=== PATIENT | male | born 1995 | race African-American/Black ===

== ENCOUNTER 2016-09-30 19:06 | Emergency (ER) | payer OTHER ==
[2016-09-30 19:25] VITALS: BP 104/83; PULSE 67; TEMP 97.3; BMI 18.8
[2016-09-30 20:43] LABS: URINE APPEARANCE CLEAR; URINE BILIRUBIN NEGATIVE (NEGATIVE); URINE BLOOD NEGATIVE (NEGATIVE); URINE COLOR YELLOW; URINE GLUCOSE (UA) NEGATIVE (NEGATIVE); URINE KETONE NEGATIVE (NEGATIVE); URINE LEUK ESTERASE NEGATIVE (NEGATIVE); URINE NITRITE NEGATIVE (NEGATIVE); URINE PROTEIN NEGATIVE (NEGATIVE); URINE UROBILINOGEN 2.0 E.U/dl E.U./dl (0.2-1.0)
--- NOTE | 2016-09-30 21:20 | PDOC ---
History of Present Illness - General Chief Complaint: Revisit, Lab Variance Stated Complaint: EVALUATION Time Seen by Provider: 09/30/16 19:41 History Source: Patient Exam Limitations: No Limitations - History of Present Illness Initial Comments: 09/30/16 21:16 CC itch rash to penis x 1 week Timing/Duration: 1 week Severity: moderate Associated Symptoms: denies: denies symptoms, cough, fever/chills, nausea/ vomiting Past History - Past Medical History Allergies/Adverse Reactions: Allergies Allergy/AdvReac Type Severity Reaction Status Date / Time shellfish derived Allergy Swelling Verified 09/30/16 19:23 Home Medications: Ambulatory Orders NK [No Known Home Medication] 07/12/16 Asthma: Yes - Psycho/Social/Smoking Cessation Hx Suicidal Ideation: No Smoking History: Never smoked Have you smoked in the past 12 months: No Number of Cigarettes Smoked Daily: 1 Information on smoking cessation initiated: No 'Breaking Loose' booklet given: 07/12/16 Hx Alcohol Use: No Drug/Substance Use Hx: No Substance Use Type: None Review of Systems - Review of Systems Constitutional: No: Symptoms Reported HEENTM: No: Symptoms Reported Respiratory: No: Symptoms reported, Cough ABD/GI: No: Symptoms Reported : Yes: Lesions. No: Dysuria, Discharge, Frequency, Urgency, Testicular Mass, Testicular Pain *Physical Exam - Vital Signs Last Vital Signs Temp Pulse Resp BP Pulse Ox 97.3 F L 67 14 104/83 100 09/30/16 19:23 09/30/16 19:23 09/30/16 19:23 09/30/16 19:23 09/30/16 19:23 - Physical Exam General Appearance: Yes: Appropriately Dressed HEENT: positive: TMs Normal, Pharynx Normal Neck: positive: Supple. negative: Tender, Rigid Respiratory/Chest: positive: Lungs Clear Male Genitalia: positive: other (penis under forskin angel some redness to glands with skin irritation; no HErpes lesions nor ulcerations). negative: discharge , testicular tenderness, testicular mass, epididymus tender Extremity: negative: Normal Capillary Refill ED Treatment Course - ADDITIONAL ORDERS Additional order review: Laboratory Results 09/30/16 20:30 Urine Color Yellow Urine Appearance Clear Urine pH 7.0 Ur Specific Eagle 1.019 Urine Protein Negative Urine Glucose (UA) Negative Urine Ketones Negative Urine Blood Negative Urine Nitrite Negative Urine Bilirubin Negative Urine Urobilinogen 2.0 e.u/dl Ur Leukocyte Esterase Negative Medical Decision Making - Medical Decision Making 09/30/16 21:19 with tx foir balanitis with steroid and anti fungal meds *DC/Admit/Observation/Transfer Diagnosis at time of Disposition: Balanitis - Discharge Dispostion Disposition: HOME Condition at time of disposition: Stable Admit: No - Patient Instructions Additional Instructions: we will call you with results of STFD testing
[2016-10-03 00:07] LABS: HSV 2 DNA. Negative (Negative)
== END 2016-09-30 21:23 | disposition home or self-care (01) ==
LOC: JERFT 19:06
DX: N48.1 Balanitis (principal)
CPT/HCPCS: 36415; 81003; 86790; 87086; 87491; 87529; 87591; 99281-25

== ENCOUNTER 2016-12-26 12:34 | Emergency (ER) | payer OTHER ==
[2016-12-26 12:42] VITALS: BP 116/77; PULSE 71; TEMP 98; BMI 20.3
[2016-12-26] MEDS ORDERED: IBUPROFEN 600 MG TABLET (FP) PO ONE (13:45)
[2016-12-26] MEDS ORDERED: IBUPROFEN 400 MG TABLET (FP) PO ONE (13:48)
--- NOTE | 2016-12-26 13:51 | PDOC ---
[id number] [id number] NEED PRESCRIPTION CHANGE Time Seen by Provider: 12/26/16 13:20 History Source: Patient Exam Limitations: No Limitations - History of Present Illness Initial Comments: 12/26/16 13:46 21 yr male with toothache after having wisdom tooth pulled 7 days ago states he took percocet but it makes him nauseas. Pt also requesting STD testing. Denies any exposure or history or exposure. Pt denies any symptoms of penile discharge or lesions. 12/26/16 17:03 Severity: mild Past History - Past Medical History Allergies/Adverse Reactions: Allergies Allergy/AdvReac Type Severity Reaction Status Date / Time shellfish derived Allergy Swelling Verified 12/26/16 12:42 Home Medications: Ambulatory Orders Clotrimazole 28 gm TP BID #1 cream..g. 09/30/16 Hydrocortisone 1% Ointment [Hytone 1% Ointment -] 1 applic TP BID #1 tube Asthma: Yes - Psycho/Social/Smoking Cessation Hx Anxiety: No Suicidal Ideation: No Smoking History: Never smoked Have you smoked in the past 12 months: No Number of Cigarettes Smoked Daily: 1 'Breaking Loose' booklet given: 07/12/16 Hx Alcohol Use: No Drug/Substance Use Hx: No Substance Use Type: None Review of Systems - Review of Systems Able to Perform ROS?: Yes Is the patient limited Cameroonian proficient: No Constitutional: Yes: Symptoms Reported, See HPI, Other (tender to left lower gum line s/p wisom tooth removed) HEENTM: No: Symptoms Reported Respiratory: No: Symptoms reported Cardiac (ROS): No: Symptoms Reported ABD/GI: No: Symptoms Reported *Physical Exam - Vital Signs Last Vital Signs Temp Pulse Resp BP Pulse Ox 98.0 F 71 20 116/77 97 12/26/16 12:39 12/26/16 12:39 12/26/16 12:39 12/26/16 12:39 12/26/16 12:39 - Physical Exam General Appearance: Yes: Nourished, Appropriately Dressed HEENT: positive: EOMI, BOBY, Normal ENT Inspection, TMs Normal, Pharynx Normal, Other (no evidence of dental abscess, TTP left lower wisdom tooth estraction , no evidence of infection , ) Neck: negative: Tender Respiratory/Chest: positive: Lungs Clear, Normal Breath Sounds Cardiovascular: positive: Regular Rhythm, Regular Rate Musculoskeletal: positive: Normal Inspection Extremity: positive: Normal Capillary Refill, Normal Inspection, Normal Range of Motion Integumentary: positive: Normal Color, Dry, Warm Neurologic: positive: copyright expert II-XII NML intact, Fully Oriented, Alert, Normal Mood/ Affect Medical Decision Making - Medical Decision Making 12/26/16 13:47 cc: toothache no fever wants to be tested for STD however pt DOES NOT want HIV testing today because he DOES NOT WANT TO WAIT for the result pt will go to the [facility] this week will swab for GC/Chlamydia and check for Syphylis 12/26/16 17:05 I have given motrin and I have given info for [facility] to have HIV testing. I have counseled pt on using condoms every time to prevent STDs *DC/Admit/Observation/Transfer Diagnosis at time of Disposition: Screening for STD (sexually transmitted disease), Toothache - Discharge Dispostion Disposition: HOME Condition at time of disposition: Good - Patient Instructions Additional Instructions: follow at the [facility] for HIV testing at [address] [place] [address] [phone] Walk in Tuesday between 11am and 6pm for testing or Tuesday 9am to 3pm take motrin (advil, motrin ibuprofen ) 800mg every 6hrs for pain follow with the dentist that pulled your teeth this week for follow up
== END 2016-12-26 13:57 | disposition home or self-care (01) ==
LOC: JERFT 12:34
DX: K08.89 Other specified disorders of teeth and supporting structures (principal); Z11.3 Encounter for screening for infections with a predominantly sexual mode of transmission
CPT/HCPCS: 36415; 86593; 87491; 87591; 99281-25

== ENCOUNTER 2018-01-24 18:34 | Emergency (ER) | payer OTHER ==
--- NOTE | 2018-01-24 18:39 | PDOC ---
Rapid Medical Evaluation Time Seen by Provider: 01/24/18 18:36 Medical Evaluation: Allergies Allergy/AdvReac Type Severity Reaction Status Date / Time shellfish derived Allergy Swelling Verified 12/26/16 12:42 01/24/18 18:36 Patient c/o: tingling to tip of penis, denies dysuria, hematuria or discharge, having unprotected sex with 1 female, wants STD and HIV testing Patient on brief exam: VSS Pateint ordered for: gc/chyl, hiv, RPR Patient to proceed to the ED Discharge Disposition - Diagnosis Concern about STD in male without diagnosis - Referrals - Patient Instructions - Post Discharge Activity
[2018-01-24 18:40] VITALS: BP 126/62; PULSE 85; TEMP 97.5; BMI 21.9
--- NOTE | 2018-01-24 19:37 | PDOC ---
History of Present Illness - General Chief Complaint: HIV Testing Stated Complaint: PERSONAL Time Seen by Provider: 01/24/18 18:36 History Source: Patient Exam Limitations: No Limitations - History of Present Illness Initial Comments: 01/24/18 19:35 Patient is a 22-year-old male who presents to the emergency department today for tingling to the tip of his penis. He states that he had unprotected sex recently with one female and now would like STD and HIV testing. Denies dysuria , hematuria and discharge. Past History - Travel Traveled outside of the country in the last 30 days: No Close contact w/someone who was outside of country & ill: No - Past Medical History Allergies/Adverse Reactions: Allergies Allergy/AdvReac Type Severity Reaction Status Date / Time shellfish derived Allergy Swelling Verified 12/26/16 12:42 Home Medications: Ambulatory Orders NK [No Known Home Medication] 01/24/18 Asthma: Yes COPD: No - Suicide/Smoking/Psychosocial Hx Smoking History: Never smoked Have you smoked in the past 12 months: No Number of Cigarettes Smoked Daily: 1 'Breaking Loose' booklet given: 07/12/16 Hx Alcohol Use: No Drug/Substance Use Hx: No Substance Use Type: None Review of Systems - Review of Systems Able to Perform ROS?: Yes Comments:: 01/24/18 19:36 CONSTITUTIONAL: Absent: fever, chills, diaphoresis, generalized weakness, malaise, loss of appetite Absent: cough, shortness of breath, dyspnea with exertion, orthopnea, wheezing, stridor, hemoptysis GASTROINTESTINAL: Absent: abdominal pain, abdominal distension, nausea, vomiting, diarrhea, constipation, melena, hematochezia GENITOURINARY: Present: tingling to the tip of his penis. Absent: dysuria, frequency, urgency, hesitancy, hematuria, flank pain, genital pain MUSCULOSKELETAL: Absent: myalgia, arthralgia, joint swelling SKIN: Absent: rash, itching, pallor NEUROLOGIC: Absent: headache, focal weakness or paresthesias, dizziness, unsteady gait, seizure, mental status changes, bladder or bowel incontinence Is the patient limited Faroese proficient: No *Physical Exam - Vital Signs Last Vital Signs Temp Pulse Resp BP Pulse Ox 97.5 F L 85 18 126/62 100 01/24/18 18:37 01/24/18 18:37 01/24/18 18:37 01/24/18 18:37 01/24/18 18:37 - Physical Exam Comments: 01/24/18 19:36 GENERAL: Well developed, well nourished. Awake and alert. No acute distress. NECK: Supple. Full ROM. No JVD. Carotid pulses 2+ and symmetric, without bruits. No thyromegaly. No lymphadenopathy. ABDOMINAL: Soft. Non-tender. Non-distended. No rebound or guarding. No organomegaly. Normoactive bowel sounds. : Uncircumsized penis, testicles descended b/l with no pain to palpation. Freely moving within the scrotum. No signs of lesions or penile discharge. MUSCULOSKELETAL Normal range of motion at all joints. No bony deformities or tenderness. No CVA tenderness. EXTREMITIES: No cyanosis. No clubbing. No edema. No calf tenderness. SKIN: Warm and dry. Normal capillary refill. No rashes. No jaundice. NEUROLOGICAL: Alert, awake, appropriate. Cranial nerves 2-12 intact. No deficits to light touch and temperature in face, upper extremities and lower extremities. No motor deficits in the in face, upper extremities and lower extremities. Normoreflexic in the upper and lower extremities. Normal speech. Toes are down- going bilaterally. Gait is normal without ataxia. PSYCHIATRIC: Cooperative. Good eye contact. Appropriate mood and affect. Medical Decision Making - Medical Decision Making 01/24/18 23:16 Patient is a 22-year-old male who presents to the emergency department for STD testing. He complains of tingling to his penis. No open wounds or herpes sores noted on exam. Urine is negative for infection. We'll empirically treat for GC chlamydia. HIV testing shows positive antibodies. Patient made aware of his test results. A phone call was placed to the [facility] to set up an appointment for the patient. Patient also given the phone number to the [facility]. Patient informed he needs to tell all of his sexual partners to get tested as well. Patient verbalizes understanding and states that he will follow-up with the [facility] tomorrow. Return precautions given. Patient understands all discharge instructions and all questions were answered. *DC/Admit/Observation/Transfer Diagnosis at time of Disposition: HIV antibody positive - Discharge Dispostion Disposition: HOME Condition at time of disposition: Stable - Referrals Referrals: [facility] Providers [Provider Group] - Patient Instructions Printed Discharge Instructions: DI for HIV Additional Instructions: 01/24/18 1. As discussed, a screening test for the HIV virus was performed today as per [facility] requirements. The preliminary results of your HIV test are Positive, which means you may have HIV. 2. The blood sample that was obtained will be sent out for further testing and confirmation. A confirmed Positive result is indicative of HIV infection, which is currently a lifelong condition. 3. As discussed, all test results are completely confidential. The results of your testing will not be released without your prior authorization. The law protects youf rom discrimination based on your HIV status. 4. As discussed, there are many benefits to antiretroviral therapy (ART) including suppressing the viral load. 5. As per the [facility] Department of Health, we have arranged for a follow-up appointment for medical care given your preliminary HIV positive results. If you were previously HIV positive and lost access to medical care, please use this referral as it is important to restart medical care. 6. As discussed, you must immediately adopt behavior changes to prevent HIV transmission to others (avoid unprotected sex or needle-sharing). 7. By law, any sex or needle-sharing partners that may have been exposed to HIV must be notified and they need to be tested. At risk partners can seek testing from their Primary Care Providers or they can go to https:// [place].aids.gov/ - Find HIV Testing Sites & Care Services - AIDS.gov. Enter a zip code to find a service facility near them. Please follow up with the [facility] tomorrow. Their phone number is [phone]. You may also call the [facility] area tomorrow for additional assistance. Our number is [phone]. Ask for the nurse practitioner. Return to the ED if you have fevers, chills, cough, weakness, or any changes in your symptoms. - Post Discharge Activity
[2018-01-24 19:40] LABS: URINE APPEARANCE CLEAR; URINE BILIRUBIN NEGATIVE (<2.0 mg/dL); URINE COLOR STRAW; URINE GLUCOSE (UA) NEGATIVE (NEGATIVE); URINE KETONE NEGATIVE (NEGATIVE); URINE LEUK ESTERASE NEGATIVE (NEGATIVE); URINE NITRITE NEGATIVE (NEGATIVE); URINE PROTEIN NEGATIVE (NEGATIVE); URINE UROBILINOGEN NEGATIVE mg/dL (0.2-1.0)
[2018-01-24] MEDS ORDERED: AZITHROMYCIN 500 MG TABLET PO ONE (20:52)
[2018-01-24] MEDS ORDERED: AZITHROMYCIN 500 MG TABLET ONE (21:07)
== END 2018-01-24 22:42 | disposition home or self-care (01) ==
LOC: JERFT 18:34
DX: Z11.4 Encounter for screening for human immunodeficiency virus [HIV] (principal)
CPT/HCPCS: 36415; 81003; 86593; 87389; 87491; 87591; 96372; 99281-25